=== PATIENT | female | born 1975 | race Caucasian/White ===

== ENCOUNTER 2016-11-14 12:30 | Inpatient (IN) | payer OTHER ==
[~2016-11-14] VITALS: Ht 165.1 cm; Wt 67.9 kg
--- NOTE | ~2016-11-14 | CON ---
PATIENT'S NAME: ELYSSA AMARO [facility] AGE: 41 Y [address] ROOM: [address] [address] [place] [facility] [place]: 11/14/2016 Consultation DISCHARGE DATE: FAMILY PHYSICIAN: Amelia Christianson MD ATTENDING PHYSICIAN: Amelia Christianson DATE OF CONSULTATION: 11/15/2016 HOSPITAL CONSULTATION REFERRING PROVIDER: Dr. Amelia Christianson. REASON FOR CONSULTATION: Acute pancreatitis. HISTORY OF PRESENT ILLNESS: This is a very pleasant, 41-year-old female, who presented to her primary care's office on November 14 with complaints of bilateral rib pain and back pain. The patient states approximately a week ago, she began having lower back pain. She did visit her chiropractor. She does visit him frequently for adjustments. On Sunday, the patient stated that the pain was located in her low back as well as over the weekend progressively worsening into her bilateral rib area per her statement. The patient's pain continued on Sunday as she revisited with her chiropractor as the intensity of the pain and her "left rib pain increased." She then presented to her primary care the following day for evaluation. The patient did have accompanying nausea. She also presented to her primary care with a low-grade fever of 99.1. She denied any az vomiting at home, though was continually nauseous. Workup completed at the clinic did show elevated sedimentation rate at 33, amylase is elevated at 310, and lipase was greater than 3000. White blood cell count was 9.2. The patient was then admitted for IV fluids in the setting of acute pancreatitis. The patient was seen and examined. She denies any history of acute pancreatitis bouts, in questioning her as she denies any az alcohol use. She does state that she will drink a glass of wine approximately 1 to 2 times per month though denies any recent alcohol intake, as she has recently been on antibiotics for upper respiratory infections over the past month. She also states that her pain has improved though still complains of left-sided abdominal pain and " rib pain." The patient does state that the nausea has slightly improved. She does feel that she is passing gas. Denies any recent bowel movement. She has been afebrile while inpatient. She did undergo a CT that did show she has increased attenuation around the tail of the pancreas likely reflecting mild pancreatitis. Also possible small liver hemangioma PATIENT'S NAME: ELYSSA AMARO [facility] AGE: 41 Y [address] ROOM: [place] [address] [place] [facility] [place] DATE: 11/14/2016 Consultation DISCHARGE DATE: FAMILY PHYSICIAN: Amelia Christianson MD ATTENDING PHYSICIAN: Amelia Christianson with a decreased attenuation at the posterior aspect of the left lobe. Abdominal ultrasound is also currently pending at this time. The patient currently denies any chest pain, chest pressure, shortness of breath, fever, or chills. She does state that her weight has been stable. PAST MEDICAL HISTORY: History of hypertension. PAST SURGICAL HISTORY: She denies any surgical history. SOCIAL HISTORY: The patient drinks approximately one glass of wine 1 to 2 times per month on a very limited social basis. Denies any illicit drug use or tobacco use. FAMILY HISTORY: The patient denies any known gastrointestinal diseases or cancers. ALLERGIES: PENICILLIN AND AMOXICILLIN. CURRENT MEDICATIONS: Please refer to the medication administration record. REVIEW OF SYSTEMS: All-point review of systems was completed. All were negative except for those identified in the History of Present Illness. PHYSICAL EXAMINATION: GENERAL: A very pleasant, 41-year-old female, lying in bed, who appears to be in no acute distress. VITAL SIGNS: Temperature 98.0, pulse of 104, oxygen saturation is 99%, respirations of 18, and blood pressure 129/72. SKIN: [place], warm, dry. No jaundice. HEENT: Head is normocephalic and atraumatic. Pupils are equal, round, and reactive to light. Sclerae are clear. Nonicteric. Oral mucosa is pink and moist. No thyromegaly. NECK: Soft and supple. CARDIOVASCULAR: Regular. Normal S1 and S2. Slightly tachycardic. RESPIRATORY: Respirations are even and unlabored. LUNGS: Clear to auscultation. ABDOMEN: Soft, round, and mildly distended. Tender throughout. The patient does note increased tenderness to the left upper quadrant. Bowel sounds are positive x4 quadrants. MUSCULOSKELETAL: No muscle weakness or atrophy. PATIENT'S NAME: ELYSSA AMARO [facility] AGE: 41 Y [address] ROOM: [place] [address] [place] [facility] [place]: 11/14/2016 Consultation DISCHARGE DATE: FAMILY PHYSICIAN: Amelia Christianson MD ATTENDING PHYSICIAN: Amelia Christianson EXTREMITIES: No edema. NEUROLOGIC: Grossly nonfocal. LABORATORY DATA AND IMAGING STUDIES: Labs and Diagnostics: Laboratory obtained this morning shows a white blood cell count of 8.8, hemoglobin of 11.2, hematocrit of 33.9, and platelets of 327,000. Chemistry panel includes a glucose of 90, BUN of 7, creatinine 0.8, sodium 142, potassium of 4.5, chloride of 112, and CO2 of 23. Albumin of 2.8, AST of 19, ALT of 28, alkaline phosphatase of 86, total bilirubin is 0.5, amylase 161 down from 310, and lipase was 1196 down from [address]014. CT as above. There is also an abdominal ultrasound pending at this time. ASSESSMENT AND PLAN: Again this is a very pleasant, 41-year-old female, who was recently admitted with mild acute pancreatitis. The patient denies any history of pancreatitis and unclear etiology. At this time, we will await for the abdominal ultrasound to be returned to rule out biliary in nature, though patient's liver function tests are within normal limits. We will also check a lipid profile to rule out hypertriglyceridemia. Calcium on admission was slightly low. Again alcohol is not a factor for likely cause. Further recommendations to be given over the receipt of diagnostics and laboratory. Thank you for this consultation. CORINA MARSHALL APRN FOR MD MAGNOLIA STARK/modl /[id number] d: 11/15/16 1426 t: 01/01/17 0821, CONSULTATION REPORT
--- NOTE | ~2016-11-14 | DS ---
PATIENT'S NAME: ELYSSA AMARO [facility] AGE: 41 Y [address] ROOM: [address] [address] [address]: [facility] [place] ADMIT DATE: 11/14/2016 Discharge Summary DISCHARGE DATE: 11/29/2016 FAMILY PHYSICIAN: Amelia Christianson MD ATTENDING PHYSICIAN: Amelia Christianson DIAGNOSIS: Pancreatitis. HISTORY OF PRESENT ILLNESS: Please see history and physical for details. COURSE OF HOSPITALIZATION: The patient was admitted, was placed on n.p.o., and was placed on IV fluids. The first night of admission, the patient had a pretty intense chest pain, so was worked up for any cardiac or pulmonary emboli, which all resulted being negative. GI was consulted at this time as well. Course of the hospitalization was eventful on the fact that the patient's amylase and lipase would decrease and then would double the following day again. The patient did not progress past clear liquid diet. A PICC line was placed for nutrition needs during her stay. The patient continued to have left upper quadrant pain and no improvement on her labs, so it was felt like the patient should be transferred to [facility] for further evaluation with their Gastroenterology for possible further ultrasounds. The patient was agreeable to this, and the patient was transferred to [facility], set up by Leela Torres. MD SUBHASH PERERA/becca /[id number] d: 12/14/16 2307 t: 01/05/17 1329, DISCHARGE SUMMARY
[2016-11-14] MEDS ORDERED: CLINDAMYCIN HC300 MG PO (13:53)
[2016-11-14] MEDS ORDERED: FLONASE 50 MCG/16 GM NOSE (13:54)
[2016-11-14] MEDS ORDERED: JUNEL FE 1 MG-1 EACH PO (13:55)
[2016-11-14] MEDS ORDERED: NORCO 5-325 TA1 EACH PO (13:56)
[2016-11-14] MEDS ORDERED: FLAGYL500 MG PO (13:56)
[2016-11-14] MEDS ORDERED: ADVIL200 MG PO (13:57)
[2016-11-14] MEDS ORDERED: PLEXUS PO (13:58)
[2016-11-14] MEDS ORDERED: CLARITIN10 MG PO (13:58)
[2016-11-14] MEDS ORDERED: X FACTOR PO (13:59)
--- NOTE | 2016-11-14 15:18 | NUR ---
D: Pt admitted from [facility] by Dr. More Christianson at 1300 for pancreatitis. Had a x1 and has seasonal allergies. Has had nausea and abd pain for approx. 1 week. Also has TMJ.
--- NOTE | 2016-11-14 15:21 | NUR ---
Significant Event: Pt admitted from clinic at 1300 for pancreatitis. Up ad veronique. Rates abd pain/rib pain at a 9, received 2mg IV MS at 1520. NPO, IVF with K+ running at 150ml/hr to right hand IV. Will have ultrasound of gallbladder today. Pt states she is on her period. Labs in am. Follow up:
[2016-11-15 05:09] LABS: BASOPHIL # 0.1 K/uL (0.0-0.2); BASOPHIL % 0.6 %; EOSINOPHIL # 0.1 K/uL (0.0-0.5); EOSINOPHIL % 0.8 %; HEMATOCRIT 33.9 % (33.0-46.0); HEMOGLOBIN 11.2 g/dL (10.0-15.0); IMMATURE GRANULOCYTE % 0.3 %; LYMPHOCYTE # 1.9 K/uL (0.8-4.0); LYMPHOCYTE % 21.3 %; MCH 31.2 pg (27.0-34.0); MCV 94.4 fl (83.0-98.0); MONOCYTE % 11.3 %; MPV 9.3 fl (9.4-12.4); NEUTROPHIL # (ANC) 5.8 K/uL (1.8-7.8); NEUTROPHIL % 65.7 %; NRBC % 0 /100WBC (0-0.00); PLATELET COUNT 327 K/uL (150-450); RDW-CV 12.1 % (11.9-14.6); WBC 8.8 K/uL (4.0-11.0)
[2016-11-15 05:11] LABS: RBC 3.59 M/uL (3.50-5.50)
[2016-11-15 05:24] LABS: ALBUMIN 2.8 gm/dL (3.5-5.0); ALK PHOS 86 IU/L (33-138); ALT 28 IU/L (12-78); ANION GAP 11.5 (10.0-19.0); AST 19 IU/L (10-40); BLOOD UREA NITROGEN 7 mg/dL (6-24); CALCIUM 8.2 mg/dL (8.5-10.5); CHLORIDE 112 mMol/L (96-110); CO2 23 mMol/L (22-32); CREATININE 0.8 mg/dL (0.5-1.1); ESTIMATED GFR (MDRD EQUATION) > 60; POTASSIUM 4.5 mMol/L (3.7-5.1); SODIUM 142 mMol/L (135-145); TOTAL BILIRUBIN 0.5 mg/dL (0.0-1.5); TOTAL PROTEIN 7.2 g/dL (6.0-8.4)
--- NOTE | 2016-11-15 06:47 | NUR ---
SIGNIFICANT EVENT: PAIN IN L) RIB/ABD AREA. CT SCAN DONE. GI CONSULT. C/O CP AND SOB AT 0000. EKG AND TROPONIN NORMAL. MORPHINE Q2H PRN, LAST GIVEN AT 0530. ZOFRAN PRN. UP W/ STANDBY ASSIST. VSS, TACHY. A/O X3. IV R) HAND NS W/ KCL @ 150ML/H. U/S OF GALLBLADDER TO BE DONE IN THE AM.
--- NOTE | 2016-11-15 11:08 | NUR ---
Met with patient and family at bedside today. Introduced myself and role of CM department. Patient states she was independent at home prior to this. Her and two young daughters are here at the hospital with her. She states her children keep her busy. Per patient we are still waiting on results of tests to determine best treatment option for her. Her plan at this time is to discharge to home with no additional needs. Will continue to follow and offer supports as needed.
--- NOTE | 2016-11-15 15:47 | NUR ---
Significant event: Patient is alert and oriented . VSS. Is tachy. On room air. Complains of left rib pain. Morphine given x2 last dose at 1435. Patient encouraged to use IS and ambulate. Has ambulated x3, independently. Did use warm blanket to left rib area too. Needs to be NPO after midnight for a fasting lipid in the morning. Had U/S today and was negative. Is still NPO but can have ice chips. Iv to right hand is running at 150/hr. Cooperative with cares.
--- NOTE | 2016-11-16 05:30 | NUR ---
Significant Event: Pt alert and oriented. VSS. Up ad veronique in room. Zofran given x 1 at 1946. Morphine given x 1 at 2229 with relief noted. Remains NPO, may have ice chips. Cont to monitor. Follow up:
--- NOTE | 2016-11-16 15:51 | NUR ---
Significant event: Patient is alert and oriented. VSS. on room air. Is on clear liquid diet, tolerating okay. Did get a little nauseated late afternoon. Zofran was given at 1515. Pt encouraged to walk, and use IS. Pt is agreeable. Warm blanket also given to patient for rib pain. Morphine given x2, last at 1510. IV to right hand with fluids running at 150/hr. Cooperative with cares.
--- NOTE | 2016-11-17 05:33 | NUR ---
Significant Event: ALERT AND ORIENTED AMBULATES AT MENDEZ IN ROOM. VSS WNL AFEBRILE. CLEAR LIQUID DIET. TAKING MORPHINE FOR PAIN AND ZOFRAN FOR N/V. LAST DOSE AT 2002 MORPHINE AND ZOFRAN 2045. IV TO RIGH HAND WITH FLUIDS RUNNING AT 150 ML/HR. Follow up:
--- NOTE | 2016-11-17 11:56 | NUR ---
Significant Event: Patient alert and oriented x3. Up ad veronqiue. Ambulated in halls multiple times. Vitals stable on room air. Right hand IV infusing fluids with no complications. Reported small loose stool this am. Bowel sounds present. Had clear liquids for breakfast then pain started increasing. IV morphine given x2, refused norco. Complains of achey type pain in abdomen that radiates to her lower back and occasional sharp left rib pain. States she feels short of breath at times. Sats 98-100%, clear lung sounds throughout, participating in IS frequently. Pleasant and cooperative with cares Follow up: monitor pain
--- NOTE | 2016-11-17 16:55 | NUR ---
Significant Event: Took over patient cares at 1200. Patient given 2 norco for abdominal pain at 1622. Up ad veronique in room and halls. States she has only been able to tolerate ice chips today. Did have 1 small loose BM. IV fluids continue to infuse at 150 ml/hour. Family into visit earlier. Follow up: Continue to monitor.
[2016-11-18 04:55] LABS: BASOPHIL % 0.7 %; EOSINOPHIL # 0.1 K/uL (0.0-0.5); EOSINOPHIL % 2.2 %; HEMATOCRIT 30.9 % (33.0-46.0); HEMOGLOBIN 10.2 g/dL (10.0-15.0); IMMATURE GRANULOCYTE % 0.4 %; LYMPHOCYTE # 1.8 K/uL (0.8-4.0); LYMPHOCYTE % 32.3 %; MCH 31.2 pg (27.0-34.0); MCV 94.5 fl (83.0-98.0); MONOCYTE # 0.6 K/uL (0.0-1.0); MONOCYTE % 10.2 %; MPV 9.6 fl (9.4-12.4); NEUTROPHIL % 54.2 %; NRBC % 0 /100WBC (0-0.00); PLATELET COUNT 301 K/uL (150-450); RBC 3.27 M/uL (3.50-5.50); RDW-CV 11.9 % (11.9-14.6); WBC 5.6 K/uL (4.0-11.0)
[2016-11-18 05:14] LABS: ALBUMIN 2.6 gm/dL (3.5-5.0); ALK PHOS 77 IU/L (33-138); ALT 24 IU/L (12-78); AST 21 IU/L (10-40); BLOOD UREA NITROGEN 3 mg/dL (6-24); CALCIUM 8.2 mg/dL (8.5-10.5); CHLORIDE 109 mMol/L (96-110); CO2 25 mMol/L (22-32); CREATININE 0.6 mg/dL (0.5-1.1); SODIUM 141 mMol/L (135-145); TOTAL BILIRUBIN 0.4 mg/dL (0.0-1.5); TOTAL PROTEIN 6.8 g/dL (6.0-8.4)
--- NOTE | 2016-11-18 05:15 | NUR ---
PATIENT IS ALERT AND ORIENTED X3 UP AT MENDEZ IN ROOM AND HALLS. INDEPENDENT IN ROOM. CONTINUES TO COMPLAIN OF ABDOMINAL PAIN AND DISCOMFORT. TAKING 2 NORCO FOR PAIN WITH GOOD RELIEF. VSS WNL ON RA IV TO R WRIST FLUIDS RUNNING AT 150ML/HR.
--- NOTE | 2016-11-18 17:27 | NUR ---
AAOx3. Cooperative with cares. Up adlib in room and hallway. Tolerating clear liquids ok. Gave [place] 2tabs x2 today. showered independently. IVF to RH@150ml/hr. VSS, afebrile, on RA.
--- NOTE | 2016-11-19 02:48 | NUR ---
Significant Event: Alert and orientated, up independently. 2 [place] at HS for abdominal pain of 6-7 states she has left lower rib pain and also some pain in her abdomen close to her left hip and bloating. Is passing gas and had a small loose stool. Still tolerating a clear diet slowly. Rests throughout the night. Follow up:Continue to monitor.
--- NOTE | 2016-11-19 12:47 | NUR ---
A-SCREENED D/T LOS ADMITTED FOR PANCREATITIS. C/O NAUSEA AT TIMES HT: 65 IN. WT: 70 KG. BMI: 25.6 LABS: NA 141, K+ 4.0, GLU 80, BUN 3, MASTER TECHNICIAN 0.6, ALB 2.6. LIPASE/AMYLASE ARE ELEVATED, BUT TRENDING DOWN DIET RX: CLEAR LIQUIDS. PO INTAKE 50% VISITED W/PT RE: APPETITE. PT STATES SHE IS TAKING IT SLOW AND THAT SHE IS STARTING TO TOLERATE MORE CLEAR LIQUIDS. DOES STILL HAVE C/O NAUSEA AT TIMES. DISCUSSED ENSURE CLEAR TO ADD ADDITIONAL PROTEIN/KCALS WHILE ON A CLEAR LIQUID DIET; PT WAS AGREEABLE TO THIS. PT HAS BEEN TRYING TO LOSE WT PRIOR TO ADMIT. HER UBW IS 130-140 LBS. EST NUTR NEEDS: 3616-6505 KCALS (25-30 KCALS/KG) 56-70 (0.8-1.0 GM/KG) 1 ML FLUID D-AT NUTRITION RISK W/INADEQUATE ORAL INTAKE R/T ALTERED GI FXN AEB DX, C/O NAUSEA, DIET RX (NPO AND/OR CLEAR LIQUIDS). I-START ENSURE CLEAR TID W/MEALS M/E-GOAL: ADVANCED DIET TOLERATED 1)F/U DIET RX, SUPPLEMENT, GI, AND POC (3-5 DAYS) 2)ASSIST NEEDED
--- NOTE | 2016-11-19 15:30 | NUR ---
AAOx3. Cooperative with cares. Up ad veronique in room and halls. Refused shower today; maybe later. PIV to RFA @150ml/hr. Tolerating clears well. Gave [place] 1tab x2 today with noted relief. Small diarrheas x2 today and flatus. Resting well.
--- NOTE | 2016-11-20 02:57 | NUR ---
Significant Event: Uneventful night, patient had 2 norco at 2209 for complaints of abdominal pain that comes and goes, sometimes it is sharp. Up independently in room. Rests throughout the night. Pain worst after taking in clears after supper. Uses heat to abdomen and also ice. Follow up: Continue to monitor.
[2016-11-20 05:21] LABS: BASOPHIL % 0.8 %; EOSINOPHIL # 0.1 K/uL (0.0-0.5); EOSINOPHIL % 2.2 %; HEMATOCRIT 32.7 % (33.0-46.0); HEMOGLOBIN 10.5 g/dL (10.0-15.0); IMMATURE GRANULOCYTE % 0.2 %; LYMPHOCYTE % 41.1 %; MCHC 32.1 gm/dL (32.0-36.5); MCV 93.4 fl (83.0-98.0); MONOCYTE # 0.5 K/uL (0.0-1.0); MONOCYTE % 10.6 %; MPV 9.3 fl (9.4-12.4); NEUTROPHIL # (ANC) 2.2 K/uL (1.8-7.8); NEUTROPHIL % 45.1 %; NRBC % 0 /100WBC (0-0.00); PLATELET COUNT 337 K/uL (150-450); RDW-CV 11.9 % (11.9-14.6); WBC 4.9 K/uL (4.0-11.0)
[2016-11-20 05:41] LABS: ALBUMIN 2.6 gm/dL (3.5-5.0); ALK PHOS 84 IU/L (33-138); ALT 35 IU/L (12-78); ANION GAP 8.1 (10.0-19.0); AST 29 IU/L (10-40); BLOOD UREA NITROGEN 4 mg/dL (6-24); CALCIUM 8.3 mg/dL (8.5-10.5); CHLORIDE 110 mMol/L (96-110); CO2 27 mMol/L (22-32); CREATININE 0.7 mg/dL (0.5-1.1); POTASSIUM 4.1 mMol/L (3.7-5.1); SODIUM 141 mMol/L (135-145); TOTAL BILIRUBIN 0.4 mg/dL (0.0-1.5); TOTAL PROTEIN 6.9 g/dL (6.0-8.4)
--- NOTE | 2016-11-20 13:18 | NUR ---
Social visit with patient today. She states she feels like she is slowly getting better. Her has been taking care of the kids. Their neighbors have started bringing meals in to help. She is very grateful for her friends and family. Will continue to follow and assist with discharge planning if needs arise.
--- NOTE | 2016-11-20 15:26 | NUR ---
Significant Event: Took over cares at 1500. Up ad veronique. States pain tolerable at this time. Follow up:
--- NOTE | 2016-11-20 17:38 | NUR ---
PATIENT ALERT AND ORIENTED X3. VSS. UP ADLIB PRN NORCO X1 REPORTED EFFECTIVE, IVF INFUSING, PLEASANT AND COOPERATIVE WITH CARES. VSS. PT CARE TRANSFERRED TO [facility]
--- NOTE | 2016-11-21 03:13 | NUR ---
Significant Event: Patient is alert and oriented x 3. VSS on room air. Up ad veronique. Ambulated in the halls. Right hand IV with NS with 20 meq of KCL running at 150 ml/hr. On clear liquid diet. Drifting given for pain last at 2325. Patient is pleasant and cooperative with cares. Follow up:
--- NOTE | 2016-11-21 15:41 | NUR ---
Significant Event: Pt c/o intermittent abd pain, some relief with norco and warm pack. Up ad veronique in room. On clear liquids. Lipase [address] of abd this am, awaiting results. Follow up:
--- NOTE | 2016-11-22 05:07 | NUR ---
Significant Event: PATIENT IS ALERT AND ORIENTED. VERY PLEASANT. COMPLAINS OF LEFT ABDOMINAL PAIN LOCALIZED AROND HER RIB AREA. CT ABD SHOWS SLIGHT INFLAMMATION BUT NO CHANGE SINCE ADMISSION. PATIENT REPORTS HER PAIN IS BECOMING MORE FREQUENT AND WORSE. LIPASE WAS 2061 YESTERDAY. UP AD MENDEZ IN ROOM. TAKING MORPHINE AND NORCO WHICH BRINGS HER PAIN DOWN TO A 7/10. NS WITH 20KCL INFUSING AT 150/HR. Follow up:
--- NOTE | 2016-11-22 11:49 | NUR ---
Reviewed chart and noted patient is scheduled for a MRCP tomorrow. Will continue to follow and offer supports as needed.
--- NOTE | 2016-11-22 16:08 | NUR ---
A-NUTRITION F/U SCHEDULED FOR MRCP TOMORROW. C/O ABD PAIN. LABS: NA 141, K+ 4.1, GLU 91, BUN 4, INSOLE FILLER 0.7, ALB 2.6. LIPASE/AMYLASE ELEVATED NO NEW MEDS. CBW: 70.0 KG; SAME ADMIT WT DIET RX: CLEAR LIQUIDS W/ENSURE CLEAR TID (NO APPLE)-DAY #6. PO INTAKE SINCE LAST F/U 25-50%. EST NUTR NEEDS: 2744-0019 KCALS AND 56-70 GM PROTEIN D-AT NUTRITION RISK W/INADEQUATE NUTRIENT INTAKE R/T ALTERED GI FXN AEB ABD PAIN, CLEAR LIQUID OR NPO DIET SINCE ADMIT, INTAKE RECORDS, DX I-CONTINUE W/ENSURE CLEAR TID WHILE PT IS ON CLEAR LIQUIDS M/E-GOAL: ADVANCE DIET FROM CLEAR LIQUIDS WITHIN 24-48 HOURS AFTER SURGERY TOMORROW 1)F/U DIET RX, PO INTAKE, GI, AND POC IN 2-3 DAYS 2)ASSIST NEEDED
--- NOTE | 2016-11-22 17:27 | NUR ---
Significant Event:Is A/O.Amb in halls by self.Queeziness at times.No flatus & no stools.Voiding ok.Lt.side pain into ribs & radiates down.MS 2mg IV x2,last at 1508.2 [place] given x2,last at 1639.Is pleasant.[facility] at [facility] tomorrow. Follow up:
--- NOTE | 2016-11-23 15:18 | NUR ---
A - CONSULT FOR PPN RECOMMENDATIONS. MRCP TODAY. NO BM/GAS. HYPOACTIVE BS. LABS (11/20): BUN 4, ALB 2.6, AMYLASE 208, LIPASE 2151, TG 70 (11/16) MEDS: REVIEWED. DIET: NPO. NPO/CLEAR LIQUID X9 DAYS, ENSURE CLEAR TID. INTAKE 0-25% ALL MEALS. EST NEEDS: 0783-0851 KCAL, 56-70 GRAMS PROTEIN, FLUID NEEDS: 1ML/KCAL D - INADEQUATE ORAL INTAKE RELATED TO ALTERED GI FUNCTION EVIDENCED BY NPO/CLEAR LIQUID X9 DAYS, PO INTAKE 0-25% ALL MEALS ON CL DIET AND NEED FOR PARENTERAL NUTRITION. I - 1) RECOMMEND PPN AT 70ML/HR WITH LIPIDS DAILY TO PROVIDE 1357 KCAL (78%) AND 71 GRAMS PROTEIN. START AT 35ML/HR X24 HR THEN INCREASE TO GOAL RATE AFTER 24 HR. RECOMMEND TO MONITOR TRIGLYCERIDE LEVEL. 2) PREFERABLY ENTERAL NUTRITION FOR PANCREATITIS PT. IF ABLE TO START EN, RECOMMEND [place] PLACEMENT; [place] 1.5 AT 50ML/HR WITH 35ML/HR WATER FLUSHES OR PER MD TO PROVIDE 1800 KCAL, 75 GRAMS PROTEIN, 914ML FREE WATER. START AT 10ML/HR, INCREASE 10ML/HR EVERY 4-8 HR TILL GOAL RATE. M/E - GOAL: TO MEET >75% OF PATIENT'S NEEDS VIA MOST APPROPRIATE ROUTE IN 2-4 DAYS. PLAN: 1) WILL FOLLOW W/ DIET ADVANCEMENT/PO INTAKE AND LABS WHILE ON PPN.
--- NOTE | 2016-11-23 16:39 | NUR ---
Significant Event:Is A/O.IV in Rt.hand.Has been amb by self.Still pain in Lt.abd.around to ribs area,is sharp & constant.Had 2 [place] at 1225.No flatus or stools today.Voiding ok.Having MRCP today.Had been NPO.Is not back at this time. Follow up:
--- NOTE | 2016-11-24 02:23 | NUR ---
SIGNIFICANT EVENT: Pt alert & oriented. VSS on RA. PIV to R) hand dc'd. PIV to L) hand infusing NS with 20 KCl at 100, R) AC infusing TPN/Lipids. PICC consult 11/24/16. Q4h VS and daily weight d/t TPN. MD needs to sign TPN flow sheet in order for q6h accuchecks to start. SBA. Pleasant and cooperative with cares.
[2016-11-24 05:05] LABS: BASOPHIL # 0.1 K/uL (0.0-0.2); BASOPHIL % 0.7 %; EOSINOPHIL # 0.1 K/uL (0.0-0.5); EOSINOPHIL % 1.9 %; HEMATOCRIT 32.4 % (33.0-46.0); HEMOGLOBIN 10.5 g/dL (10.0-15.0); IMMATURE GRANULOCYTE % 0.3 %; LYMPHOCYTE # 1.8 K/uL (0.8-4.0); LYMPHOCYTE % 26.4 %; MCH 29.9 pg (27.0-34.0); MCHC 32.4 gm/dL (32.0-36.5); MCV 92.3 fl (83.0-98.0); MONOCYTE # 0.7 K/uL (0.0-1.0); MONOCYTE % 9.8 %; MPV 9.3 fl (9.4-12.4); NEUTROPHIL # (ANC) 4.2 K/uL (1.8-7.8); NEUTROPHIL % 60.9 %; NRBC % 0 /100WBC (0-0.00); PLATELET COUNT 295 K/uL (150-450); RBC 3.51 M/uL (3.50-5.50); RDW-CV 11.9 % (11.9-14.6)
[2016-11-24 05:38] LABS: ALBUMIN 2.7 gm/dL (3.5-5.0); ALK PHOS 108 IU/L (33-138); ALT 41 IU/L (12-78); ANION GAP 13.1 (10.0-19.0); AST 30 IU/L (10-40); BLOOD UREA NITROGEN 6 mg/dL (6-24); CALCIUM 8.4 mg/dL (8.5-10.5); CHLORIDE 109 mMol/L (96-110); CO2 24 mMol/L (22-32); CREATININE 0.7 mg/dL (0.5-1.1); POTASSIUM 4.1 mMol/L (3.7-5.1); SODIUM 142 mMol/L (135-145); TOTAL PROTEIN 7.3 g/dL (6.0-8.4)
[2016-11-24 05:39] LABS: TOTAL BILIRUBIN 0.6 mg/dL (0.0-1.5)
--- NOTE | 2016-11-24 16:16 | NUR ---
Patient is alert and oriented, VSS, on room air. Independent. PICC line placed in R) upper arm, double lumen. Infusing D10W now until TPN and Lipids are restarted and NS with 20 mEq of potassium, total fluid should equal 150ml/hr. Clear liquid diet, last norco given around 1400, had some pain after having her lunch tray. Will continue to monitor pain.
--- NOTE | 2016-11-25 04:37 | NUR ---
Significant Event: PATIENT IS ALERT AND ORIENTED, UP AD MENDEZ IN ROOM. CONSISTENTLY RATES ABDOMINAL PAIN 7/. RECEIVES NORCO 2 TAB Q6H LAST GIVEN AT 0315. PATIENT DENIED NEED FOR MORPHINE. ON ROOM AIR. HAS TPN/LIPIDS INFUSING ALONG WITH IVF TO EQUAL 150ML/HR INFUSION RATE TOTAL. PICC TO RIGHT UPPER ARM. APPEARS TO BE SWOLLEN AND TENDER. Follow up:
[2016-11-25 05:45] LABS: BASOPHIL # 0.1 K/uL (0.0-0.2); BASOPHIL % 0.7 %; EOSINOPHIL # 0.1 K/uL (0.0-0.5); EOSINOPHIL % 1.7 %; HEMATOCRIT 36.5 % (33.0-46.0); HEMOGLOBIN 11.9 g/dL (10.0-15.0); IMMATURE GRANULOCYTE % 0.4 %; LYMPHOCYTE # 1.8 K/uL (0.8-4.0); LYMPHOCYTE % 25.5 %; MCH 30.6 pg (27.0-34.0); MCHC 32.6 gm/dL (32.0-36.5); MCV 93.8 fl (83.0-98.0); MONOCYTE # 0.6 K/uL (0.0-1.0); MONOCYTE % 8.7 %; MPV 9.7 fl (9.4-12.4); NEUTROPHIL # (ANC) 4.3 K/uL (1.8-7.8); NRBC % 0 /100WBC (0-0.00); PLATELET COUNT 298 K/uL (150-450); RBC 3.89 M/uL (3.50-5.50); WBC 6.9 K/uL (4.0-11.0)
[2016-11-25 06:01] LABS: ALBUMIN 2.9 gm/dL (3.5-5.0); ALK PHOS 126 IU/L (33-138); ALT 52 IU/L (12-78); AST 37 IU/L (10-40); BLOOD UREA NITROGEN 6 mg/dL (6-24); CALCIUM 8.5 mg/dL (8.5-10.5); CHLORIDE 110 mMol/L (96-110); CO2 24 mMol/L (22-32); CREATININE 0.7 mg/dL (0.5-1.1); SODIUM 140 mMol/L (135-145); TOTAL BILIRUBIN 0.6 mg/dL (0.0-1.5); TOTAL PROTEIN 7.9 g/dL (6.0-8.4)
--- NOTE | 2016-11-25 09:59 | NUR ---
A - NUT F/U. S/P MRCP. PICC LINE. PPN/LIPIDS STARTED. CURRENT WT 150#. LABS: ACCUCHECK WNL-REAS, GLU 101, ALB 2.9, AMYLASE 96, LIPASE 1161, PREALB 16 MEDS: PROTONIX, BOWEL/NAUSEA DIET: CLEAR LIQUID. INTAKE: 50-75% x 1 MEAL ENSURE CLEAR TID PPN @ 70 ML/HR W/ 250 ML 20% LIPIDS DAILY PROVIDING 1357 KCAL AND 71 G PRO. NEEDS: 0163-8810 KCAL, 56-70 G PRO D - INADEQUATE ORAL NUTRIENT INTAKE R/T ALTERED GI FUNCTION AEB CLEAR LIQUID DIET, NEED FOR PARENTERAL NUTRITION, PANCREATITIS. I - GOAL FOR ORAL INTAKE TOLERANCE. GOAL FOR DIET ADVANCEMENT. WILL CONTINUE ENSURE CLEAR TID WHILE ON CLEAR LIQUID DIET. REC CONTINUING PPN UNTIL DIET ADVANCED. M/E - WILL MONITOR POC, DIET, INTAKE, GI FUNCTION. F/U IN 2-4 DAYS.
--- NOTE | 2016-11-25 19:33 | NUR ---
Significant Event: TOOK OVER CARES AT 1430. IS A/O,IS UP IN ROOM INDEPEND. GETTING TPN/LIPIDS PER PICC LINE IN RIGHT ARM...HAD 2 NORCO AT 1650 FOR C/O ABD PAIN... Follow up:
--- NOTE | 2016-11-26 02:58 | NUR ---
SIGNIFICANT EVENT: Pt alert & oriented. Independent to ambulate in room/hallway. NPO. Q6h accuchecks, next will be at 0500. 2 [place] 5/325 given x2, last at 2335. PICC to R)UA. NS with KCl, TPN, Lipids infusing. Pleasant and cooperative with cares.
[2016-11-26 05:34] LABS: ANION GAP 10.8 (10.0-19.0); POTASSIUM 3.8 mMol/L (3.7-5.1)
--- NOTE | 2016-11-26 16:10 | NUR ---
Patient is alert and oriented, VSS, afebrile, on room air. Independent in cares. PICC to R) upper arm has fluids and TPN/lipids infusings. Arm is slightly swollen but has not changed since insertion and has great blood return. Her labs were up a little today so she is still on a clear liquid diet. Accuchecks are Q 6 hours. [place] last given at 1320.
--- NOTE | 2016-11-27 03:21 | NUR ---
SIGNIFICANT EVENT: Pt alert & oriented. VSS on RA. PICC to R) UA infusing NS with KCl, TPN, Lipids. Q6h accuchecks. Clear liquid diet. Q6h [place] (2 tabs) given x2, last at 0115. No BM this shift but did have one on 11/26/16 day shift. Independent transfers/ambulate. Pleasant and cooperative with cares.
[2016-11-27 04:19] LABS: BASOPHIL # 0.1 K/uL (0.0-0.2); BASOPHIL % 0.8 %; EOSINOPHIL # 0.1 K/uL (0.0-0.5); EOSINOPHIL % 1.4 %; HEMATOCRIT 33.3 % (33.0-46.0); HEMOGLOBIN 10.9 g/dL (10.0-15.0); IMMATURE GRANULOCYTE % 0.5 %; LYMPHOCYTE % 26.6 %; MCH 30.4 pg (27.0-34.0); MCHC 32.7 gm/dL (32.0-36.5); MONOCYTE # 0.7 K/uL (0.0-1.0); MONOCYTE % 8.6 %; MPV 10.1 fl (9.4-12.4); NEUTROPHIL # (ANC) 4.8 K/uL (1.8-7.8); NEUTROPHIL % 62.1 %; NRBC % 0 /100WBC (0-0.00); RBC 3.58 M/uL (3.50-5.50); RDW-CV 12.2 % (11.9-14.6); WBC 7.7 K/uL (4.0-11.0)
[2016-11-27 04:20] LABS: PLATELET COUNT 196 K/uL (150-450)
[2016-11-27 04:25] LABS: INR - (THERAPEUTIC) 1.08 (0.92-1.07); PROTIME 11.3 SECONDS (9.8-11.4)
[2016-11-27 04:38] LABS: ALBUMIN 2.7 gm/dL (3.5-5.0); ALK PHOS 130 IU/L (33-138); ALT 65 IU/L (12-78); ANION GAP 10.8 (10.0-19.0); AST 53 IU/L (10-40); BLOOD UREA NITROGEN 10 mg/dL (6-24); CALCIUM 8.3 mg/dL (8.5-10.5); CHLORIDE 110 mMol/L (96-110); CO2 23 mMol/L (22-32); CREATININE 0.7 mg/dL (0.5-1.1); POTASSIUM 3.8 mMol/L (3.7-5.1); SODIUM 140 mMol/L (135-145); TOTAL BILIRUBIN 0.5 mg/dL (0.0-1.5); TOTAL PROTEIN 7.4 g/dL (6.0-8.4)
--- NOTE | 2016-11-27 15:20 | NUR ---
AAOx3. Cooperative with cares. Up ad veronique in room and halls. Gave Morphine x3 and [place] 2tabs x2 today w/moderate relief. Pain today up to a 10/10 at times. IVF and TPN/Lipids to ELOISA PICC w/GBR. Total fluids infusing to be 150ml/hr; adjust around Lipids. VSS, afebrile, on RA. BM liquid x1.
--- NOTE | 2016-11-28 02:32 | NUR ---
SIGNIFICANT EVENT: Pt alert & oriented. VSS on RA. Up ad veronique. TPN, Lipids and NS with 20KCl running at total of 150 mL/hr (60 fluids, 70 TPN, 20 Lipids) - order is to maintain rate of 150/hr so fluids will be increased to 80 once Lipids completed. [place] (2 tabs - ) order q4h - given x2 so far this shift, last at 0125. This seems to be providing better pain relief. Clear liquid diet. 3 voids, no BM this shift. Pleasant and cooperative with cares.
--- NOTE | 2016-11-28 14:29 | NUR ---
A-NUTRITION F/U (+)BS; LOOSE STOOLS. C/O ABD PAIN LABS: NA 140, K+ 3.8, GLU 107, BUN 10, INCIDENT MANAGER 0.7, ALB 2.7 MEDS: 11/27-NORCO DIET RX: CLEAR LIQUIDS W/ENSURE CLEAR TID. PO INTAKE HAS IMPROVED SINCE LAST F/U; LAST TWO MEALS HAVE BEEN 75-100%. 70 ML/R PPN W/250 ML LIPIDS DAILY; PROVIDING 1357 KCALS AND 71 GM PROTEIN EST NUTR. NEEDs: 9300-6070 KCALS AND 56-70 GM PROTEIN D-AT NUTRITION RISK W/INADEQUATE ORAL INTAKE R/T ALTERED GI FXN AEB EXTENDED NPO AND/OR CLEAR LIQUID DIET RX, ABD PAIN, LOOSE STOOLS, SURGERY. I-1)CONTINUE W/ENSURE CLEAR TID 2)CONTINUE W/PPN AND LIPIDS WHILE PT IS ON CLEAR LIQUID DIET M/E-GOAL: ADVANCE DIET WHEN MEDICALLY INDICATED 1)F/U PO INTAKE, GI, AND POC IN 3-5 DAYS 2)ASSIST NEEDED
--- NOTE | 2016-11-28 18:30 | NUR ---
Significant Event: Patient up ad veronique in room and bello. Did remind patient to put leg pumps on throughout the shift which she did once, but the rest of the time patient was up too much or was going to get up in a little bit and didn't want them on for that short of time. Stringer 2 tabs given last at 1605 with partial relief noted. Patient last given morphine 2 mg IV at 1430 with partial relief noted. Patient has rated her pain consistently between a 6-8. Lipase was 1480 and amylase was 134 today. Double lumen PICC to right upper anterior arm intact and patent with good blood return. Plan is for gall bladder to come out when amylase and lipase are back within normal range. Currently patient is on PPN, lipids, and clear liquids. Follow up: Continue to monitor.
--- NOTE | 2016-11-29 04:37 | NUR ---
Significant Event: Patient alert and oriented X4. Up ad veronique. PPN and lipids to picc R) upper arm. IVF running to total 150/hr. Voiding well. BM yesterday. Clear liquid diet. Monitoring labs. Vitals stable and on room air. Q6H accuchecks. [place] last at 0230. Relief noted. Follow up: Monitor pain
--- NOTE | 2016-11-29 12:52 | NUR ---
RECEIVED REFERRAL THAT PATIENT NEED TO TRANSFERE TO [facility] IN [place]. Wanda MARSHALL APRN HAS SPOKEN TO DR. CROSS WHO WILL BE THE ACCEPTING PHYSICIAN. DR. More BENTLEY HAS SEEN PATIENT AND INFORMED HER OF THE TRANSFERE AND PATIENT IS IN AGREEMENT TO THE TRANSFERE. PETRA VILLALOBOS INFORMS ME THAT SHE IS WAITING ON A BED ACCEPTANCE FROM [facility]. I NOTIFED [facility] AND SPOKE TO EDA INFORMED HER OF THE TRANSFERE. SHE INFORMS ME THAT THEY WILL PLAN ON TRANSPORTING PATIENT ONCE THERE IS BED ACCEPTANCE. I SPOKE TO ELYSSA AND UPDATED HER THAT WE ARE WAITING ON BED ACCEPTANCE AND SHE IS IN AGREEMENT TO GOING TO [facility], SHE TELLS ME THAT SHE WANTS TO GO THERE AND HOPES THAT THEY CAN " FIGURE OUT WHAT IS GOING ON." PATIENT DENIES ANY OTHER NEEDS OR CONCERNS AT THIS TIME.
--- NOTE | 2016-11-29 13:49 | NUR ---
Patient is a 41 year old female who was admitted to [facility] on 11/14/16 for acute pancreatitis. She orginally presented to her PCP with complaints of bilateral rib pain and back pain. She did visit the chiropracter. Pain grew worse and nausea developed. Past medical history of hypertension. MRCP was completed during this hospital stay which showed some possible sludge in the gallbladder. [place] and lipase are still elevated and are not trending down. Vital signs are stable and on room air. Does have a dull abdominal pain that radiates across the entire abdomen. [place] given x2 today, last at 1234, relief noted. PICC to the right upper arm- double lumen- good blood return. On PPN and lipids and fluids per MD orders. Checking blood sugars q6 per PPN policy, have been within normal limits. Denies nausea. Up indepenntly. Voiding okay. Did have 2 loose stools today, but did have a stool softener this am. On clear liquid and tolerating fair. Showered today. Cooperative with cares.
--- NOTE | 2016-11-29 15:25 | NUR ---
Deanne will be transferred to [facility] in [place] for a higher level of care. She will be transported by ambulance and she signed the transfer form. She will be received by Dr. Chaves at [facility]. Contacted EMS and provided them with room number, 429, for [facility]. Patient's nurse, WILFREDO Krause was given the nurse to nurse number and called report to the nurse at [facility]. Met with patient and offered emotional support. She requested that her belongings he held until a family member can pick them up. She also requested that her control pills be sent with her. WILFREDO Tyson was informed of her requests and will make certain patient's personal medications get in the discharge packet. No other discharge needs at this time.
--- NOTE | 2016-11-29 17:56 | NUR ---
Recieved a call from the transfer center that works with [facility] in [place]. They said that [place] would be going to 429. Echo from the call center is the one who called. The nurse to nurse number was [phone]. Let Nelida the nurse know and gave her the information.
== END 2016-11-29 16:30 | disposition critical access hospital (66) | DRG 440 ==
LOC: GMSU 12:31
PROVIDERS: Family Medicine; ADMIT Family Medicine
PROC: 02HV33Z Insertion of Infusion Device into Superior Vena Cava, Percutaneous Approach (ICD-10-PCS; principal; 2016-11-24)
DX: K85.90 Acute pancreatitis without necrosis or infection, unspecified (principal); I10 Essential (primary) hypertension; Z88.1 Allergy status to other antibiotic agents
CPT/HCPCS: C1751; C1894; C9113; J2270; J2405; J3480; Q9967

== ENCOUNTER → 2017-01-09 | Outpatient (CLI) | payer OTHER ==
[~2017-01-09] MED LIST: ADVIL200 MG PO; CLARITIN10 MG PO; CLINDAMYCIN HC300 MG PO; FLAGYL500 MG PO; FLONASE 50 MCG/16 GM NOSE; JUNEL FE 1 MG-1 EACH PO; NORCO 5-325 TA1 EACH PO; PLEXUS PO; X FACTOR PO
== END | disposition disaster alternative care site (69) ==
LOC: GRAD 09:41
DX: R10.9 Unspecified abdominal pain (principal); Z87.19 Personal history of other diseases of the digestive system; Z90.49 Acquired absence of other specified parts of digestive tract
CPT/HCPCS: Q9967